=== PATIENT | female | born 1990 | race Caucasian/White ===

== ENCOUNTER 2017-05-11 20:13 | Inpatient (IN) | payer MEDICAID ==
[2017-05-11 21:04] VITALS: BMI 35.4
[2017-05-11 21:35] LABS: BASO % 0.3 % (0.0-2.0); EOS % 0.5 % (0.0-4.0); HEMATOCRIT 32.9 % (34.0-47.0); LYMPH # 1.5 K/uL (1.0-4.3); LYMPH % 15.5 % (20.0-40.0); MEAN CELL VOLUME 85.5 fl (81.0-99.0); MEAN CORPUSCULAR HEMOGLOBIN 28.8 pg (27.0-31.0); MEAN CORPUSCULAR HGB CONC 33.6 g/dL (33.0-37.0); MEAN PLATELET VOLUME 8.8 fl (7.2-11.7); MONO # 0.7 K/uL (0.0-0.8); MONO % 7.1 % (0.0-10.0); NEUT # 7.3 K/uL (1.8-7.0); NEUT % 76.6 % (50.0-75.0); NRBC % 0.1 % (0.0-0.0); RED CELL DISTRIBUTION WIDTH 13.6 % (11.5-14.5); WHITE BLOOD COUNT 9.6 K/uL (4.8-10.8)
[2017-05-12] MEDS: Nalbuphine 20 mg/ml Inj (1 ml) IVP PRN ×2 (06:25→12:04)
[2017-05-12 07:23] VITALS: PULSE 69; RESP 18; O2SAT 100
[2017-05-12] MEDS: Lactated Ringer's 500 ML IV SCH ×4 (11:00→18:00)
[2017-05-12] MEDS ORDERED: Nalbuphine 20 mg/ml Inj (1 ml) IVP PRN (11:36)
[2017-05-12] MEDS ORDERED: Fentanyl/Bupivacaine HCl 250 ML EPI ONE (18:12)
[2017-05-12] MEDS ORDERED: Lactated Ringer's 500 ML IV SCH (18:15)
[2017-05-12] MEDS ORDERED: Lidocaine 1% Inj (20ml) ONE (19:19)
[2017-05-12] MEDS ORDERED: Oxycodone/Acetaminophen 5/325 mg Tab PO PRN ×2 (20:29)
[2017-05-12] MEDS ORDERED: Benzocaine/Menthol SPRAY TOP PRN (20:29)
[2017-05-13 06:53] LABS: BASO % 0.1 % (0.0-2.0); HEMATOCRIT 31.5 % (34.0-47.0); LYMPH # 1.5 K/uL (1.0-4.3); LYMPH % 10.7 % (20.0-40.0); MEAN CELL VOLUME 84.4 fl (81.0-99.0); MEAN CORPUSCULAR HEMOGLOBIN 28.7 pg (27.0-31.0); MEAN PLATELET VOLUME 9.1 fl (7.2-11.7); MONO # 0.6 K/uL (0.0-0.8); MONO % 4.4 % (0.0-10.0); NEUT # 11.8 K/uL (1.8-7.0); NEUT % 84.8 % (50.0-75.0); RED CELL DISTRIBUTION WIDTH 13.3 % (11.5-14.5)
[2017-05-14 19:41] VITALS: BP 127/88; TEMP 98.8
== END 2017-05-14 13:30 | disposition home or self-care (01) | DRG 373 ==
LOC: H.EROB2 20:13 → H.L&D 21:14 → H.OB/GYN 05-12 23:07
PROVIDERS: ADMIT Obstetrics & Gynecology; ATTEND Obstetrics & Gynecology
PROC: 10E0XZZ Delivery of Products of Conception, External Approach (ICD-10-PCS; principal; 2017-05-11)
PROC: 0KQM0ZZ Repair Perineum Muscle, Open Approach (ICD-10-PCS; 2017-05-11)
PROC: 4A1HXCZ Monitoring of Products of Conception, Cardiac Rate, External Approach (ICD-10-PCS; 2017-05-11)
DX: O69.81X0 Labor and delivery complicated by cord around neck, without compression, not applicable or unspecified (principal); O41.03X0 Oligohydramnios, third trimester, not applicable or unspecified; Z37.0 Single live birth; O70.1 Second degree perineal laceration during delivery; Z3A.37 37 weeks gestation of pregnancy; Z87.891 Personal history of nicotine dependence